=== PATIENT | female | born 1935 | race Caucasian/White ===

== ENCOUNTER 2016-11-17 10:26 | Emergency (ER) | payer MEDICARE, BC ==
[~2016-11-17] VITALS: Ht 152.4 cm; Wt 61.2 kg
--- NOTE | 2016-11-17 11:28 | NUR ---
Patient discharged to home in stable conditon. Written and verbal after care instructions given. Patient verbalizes understanding of instructions.
== END 2016-11-17 11:30 | disposition home or self-care (01) ==
LOC: ER 10:26
DX: S42.401A Unspecified fracture of lower end of right humerus, initial encounter for closed fracture (principal); I10 Essential (primary) hypertension; K21.9 Gastro-esophageal reflux disease without esophagitis; Z88.0 Allergy status to penicillin; Z88.2 Allergy status to sulfonamides; W19.XXXA Unspecified fall, initial encounter; Y93.89 Activity, other specified; Y92.89 Other specified places as the place of occurrence of the external cause; Y99.8 Other external cause status
CPT/HCPCS: 73030; 73080; A4663

== ENCOUNTER 2017-10-09 16:27 | Inpatient (IN) | payer MEDICARE, BC ==
[~2017-10-09] VITALS: Ht 157.5 cm; Wt 66.9 kg
[2017-10-09] MEDS ORDERED: NIFE30TA2 PO (16:49)
[2017-10-09] MEDS ORDERED: OMEP20CA10 PO (16:49)
[2017-10-09] MEDS ORDERED: ONDANSETRON 4 MG/2 ML VIAL IV ONE (17:15)
[2017-10-09] MEDS ORDERED: IV NORMAL SALINE 1000 ML BAG IV ONE (17:15)
[2017-10-09] MEDS ORDERED: ACETAMINOPHEN ES 500 MG TABLET PO ONE (17:15)
[2017-10-09] MEDS ORDERED: ONDANSETRON 4 MG/2 ML VIAL ONE (17:28)
[2017-10-09] MEDS ORDERED: ACETAMINOPHEN ES 500 MG TABLET ONE (17:28)
[2017-10-09 17:33] LABS: BASOPHILS % (AUTO) 0.8 % (0.0-2.0); HEMATOCRIT 40.2 % (31.2-41.9); HEMOGLOBIN 14.1 g/dL (10.9-14.3); LYMPHOCYTES # (AUTO) 0.4 K/uL (20.0-40.0); LYMPHOCYTES % (AUTO) 11.9 % (20.5-51.5); MEAN CORPUSCULAR HEMOGLOBIN 30.1 uug (24.7-32.8); MEAN CORPUSCULAR HGB CONC 35 g/dL (32.3-35.6); MONOCYTES # (AUTO) 0.2 K/uL (2.0-10.0); MONOCYTES % (AUTO) 5.1 % (0.0-11.0); NEUTROPHILS # (AUTO) 2.5 K/uL (1.8-8.9); NEUTROPHILS % (AUTO) 82.2 % (38.5-71.5); PLATELET COUNT (AUTO) 191 K/uL (179-408); RED BLOOD CELL COUNT(AUTO) 4.68 MIL/uL (3.63-4.92)
[2017-10-09 17:37] LABS: *BLOOD, URINE NEGATIVE (NEGATIVE); *CLARITY,URINE SLIGHTLY CLOUDY (CLEAR); *COLOR,URINE YELLOW (YELLOW); *KETONES,URINE 1+ (NEGATIVE); *PROTEIN,URINE 1+ (NEGATIVE); *UROBILINOGEN,URINE 0.2 E.U./dl (NORMAL); LEUKOCYTE ESTERASE ,URINE NEGATIVE (NEGATIVE); NITRITE, URINE NEGATIVE (NEGATIVE); PH,URINE 5.5 (5.0-8.0); UGLUCOSE TRACE (NEGATIVE)
[2017-10-09 17:42] LABS: CARBON DIOXIDE 31 mmol/L (21-32); CHLORIDE 100 mmol/L (98-107); CREATININE 0.6 mg/dL (0.6-1.3); GLUCOSE 112 mg/dL (74-106); POTASSIUM 3.4 mmol/L (3.5-5.1); UREA NITROGEN, BLOOD 13 mg/dL (7-18)
[2017-10-09 17:48] LABS: *BILIRUBIN,URIN 1+ (NEGATIVE)
[2017-10-09 17:52] LABS: BACTERIA,URINE NONE SEEN /HPF (NONE SEEN); RBC,URINE 0-3 /HPF (0-3); SQUAMOUS EPITHELIAL CELL,UR FEW /HPF (NONE SEEN)
[2017-10-09 17:56] LABS: ALANINE AMINOTRANSFERASE 23 U/L (14-59); ALKALINE PHOSPHATASE 111 U/L (50-136); ASPARTATE AMINOTRANSFERASE 23 U/L (15-37); BILIRUBIN,DIRECT 0.2 mg/dL (0.0-0.2); BILIRUBIN,TOTAL 0.7 mg/dL (0.2-1.0); TOTAL PROTEIN, SERUM 6.8 g/dL (6.4-8.2)
[2017-10-09] MEDS ORDERED: AZITHROMYCIN IV 500 MG in IV DEXTROSE 5% 250 ML IV ONE (18:45)
[2017-10-09] MEDS ORDERED: AZITHROMYCIN 500 MG VIAL IV ONE ×2 (18:46→19:30)
--- NOTE | 2017-10-09 19:45 | NUR ---
Patient's oxygen saturation 85% on room air, MD notified. Placed patient on oxygen 2L/min via nasal cannula.
--- NOTE | 2017-10-09 20:22 | NUR ---
Dr. Conner on panel call with Dr. Lewis.
--- NOTE | 2017-10-09 20:49 | NUR ---
Passed report to Nikia VILLATORO Tele.
--- NOTE | 2017-10-09 21:00 | NUR ---
NEW ADMIT FROM ER, ADMITTED FOR PNA/CHF. AAOX3 DENIES CHEST PAIN ON ADMISSION. C/O SOB ON EXERTION. O2 ON @2LPM SAT @ 95%. HOB AT 35 DEGREES TO EASE BREATHING. SAFETY MEASURES IN PLACE, CALL LIGHT LEFT WITHIN PATIENT'S REACH
[2017-10-09 21:13] VITALS: BP 130/61
[2017-10-09] MEDS ORDERED: MELATONIN 3 MG TABLET PO PRN (22:30)
[2017-10-09] MEDS ORDERED: ONDANSETRON 4 MG/2 ML VIAL IV PRN (22:30)
[2017-10-09] MEDS ORDERED: ALBUTEROL SULFATE 2.5 MG/3 ML NEBU NEB PRN (22:30)
[2017-10-09] MEDS ORDERED: MORPHINE SULFATE 2 MG/1 ML DISP.SYRIN IV PRN (22:30)
[2017-10-09] MEDS ORDERED: MAGNESIUM HYDROXIDE 30 ML LIQUID UDC PO PRN (22:30)
[2017-10-09] MEDS ORDERED: LEVOFLOXACIN 500 MG/D5W 100 ML ONE (23:04)
[2017-10-09] MEDS: LEVOFLOXACIN 500 MG/D5W 500 MG in PREMIXED 1 EACH IV SCH (23:10)
[2017-10-10 04:00] VITALS: BP 138/63
[2017-10-10] MEDS: ACETAMINOPHEN 325 MG TABLET PO PRN (06:09)
[2017-10-10] MEDS: PANTOPRAZOLE SODIUM 40 MG TABLET.DR PO SCH (06:09)
--- NOTE | 2017-10-10 06:29 | NUR ---
PATIENT IS AWAKE, SLEPT ON & OFF THROUGHOUT THE SHIFT. NO C/O CHEST PAIN, NO MORE C/O SOB ON EXERTION. NO FEVER ON THIS SHIFT, VSS WNL. TYLENOL PRN GIVEN X1 . NO FURTHER CHANGES IN STATUS. SAFETY MEASURES MAINTAINED AT ALL TIMES
[2017-10-10 06:56] LABS: BASOPHILS % (AUTO) 0.5 % (0.0-2.0); HEMATOCRIT 37.2 % (31.2-41.9); HEMOGLOBIN 13.4 g/dL (10.9-14.3); LYMPHOCYTES # (AUTO) 0.3 K/uL (20.0-40.0); MEAN CORPUSCULAR HEMOGLOBIN 30.7 uug (24.7-32.8); MEAN CORPUSCULAR HGB CONC 36 g/dL (32.3-35.6); MEAN CORPUSCULAR VOLUME 85.4 fL (75.5-95.3); MONOCYTES # (AUTO) 0.1 K/uL (2.0-10.0); NEUTROPHILS # (AUTO) 1.7 K/uL (1.8-8.9); NEUTROPHILS % (AUTO) 81.5 % (38.5-71.5); RED BLOOD CELL COUNT(AUTO) 4.36 MIL/uL (3.63-4.92)
[2017-10-10 07:08] LABS: PLATELET COUNT (AUTO) 160 K/uL (179-408)
[2017-10-10 07:09] LABS: WHITE BLOOD COUNT (AUTO) 2.1 K/uL (3.8-11.8)
[2017-10-10 07:16] LABS: ALANINE AMINOTRANSFERASE 26 U/L (14-59); ALKALINE PHOSPHATASE 96 U/L (50-136); ASPARTATE AMINOTRANSFERASE 30 U/L (15-37); BILIRUBIN,TOTAL 0.7 mg/dL (0.2-1.0); CARBON DIOXIDE 28 mmol/L (21-32); CHLORIDE 103 mmol/L (98-107); CHOLESTEROL 149 mg/dL (<200); CREATININE 0.6 mg/dL (0.6-1.3); GLUCOSE 100 mg/dL (74-106); HDL CHOLESTEROL 39 mg/dL (40-60); MAGNESIUM 1.9 mg/dL (1.8-2.4); PHOSPHOROUS 2.8 mg/dL (2.5-4.9); POTASSIUM 3.2 mmol/L (3.5-5.1); TOTAL PROTEIN, SERUM 6.3 g/dL (6.4-8.2); TRIGLYCERIDES 72 MG/DL (30-150); UREA NITROGEN, BLOOD 10 mg/dL (7-18)
[2017-10-10 07:22] LABS: THYROID STIMULATING HORMONE 0.456 mIU/mL (0.358-3.740)
[2017-10-10 07:50] LABS: BAND % (MANUAL) 13 % (0-10); BASOPHILS % (MANUAL) 1 % (0-2); LYMPHOCYTES % (MANUAL) 13 % (20-40); MONOCYTES % (MANUAL) 4 % (2-10); NEUTROPHILS % (MANUAL) 69 % (42-75)
--- NOTE | 2017-10-10 08:30 | NUR ---
Patient alert, in no distress, anxious to leave. Patient stated she does not want to be admitted, brought her own car and is in the parking lot. Patient does not want to leave AMA and is anxious to be discharged with oral antibiotics. MD notified.
[2017-10-10 08:33] VITALS: BP 117/67
[2017-10-10] MEDS ORDERED: MORPHINE SULFATE 4 MG/1 ML DISP.SYRIN IV PRN (08:36)
[2017-10-10] MEDS: ASPIRIN EC 81 MG TABLET.DR PO SCH (08:41)
[2017-10-10] MEDS: NIFEdipine XL 30 MG TABSR PO SCH (08:41)
[2017-10-10] MEDS ORDERED: FUROSEMIDE 20 MG/2 ML VIAL IV SCH (09:00)
--- NOTE | 2017-10-10 09:15 | NUR ---
Patient seen by special tester, discussed plans and treatment and provided patient teachings, pt verbalized understanding.
[2017-10-10] MEDS ORDERED: POTASSIUM CHLORIDE 20 MEQ POWDER PACKET PO ONE (10:00)
[2017-10-10 11:43] VITALS: BP 119/57
[2017-10-10] MEDS ORDERED: IPRATROPIUM BROMIDE 0.5 MG/2.5 ML NEBU NEB PRN (15:45)
[2017-10-10 16:22] VITALS: BP 128/51
--- NOTE | 2017-10-10 20:00 | NUR ---
PATIENT IS AWAKE IN BED AAOX3. DENIES PAIN OR SOB ON ASSESSMENT. O2 ON AT 2PLM WITH HOB AT 35 DEGREES. NO FEVER ON ASSESSMENT. SAFETY MEASURES IN PLACE, CALL LIGHT WITHIN PATIENT'S REACH
[2017-10-10 20:10] VITALS: BP 126/56
[2017-10-10] MEDS: DOCUSATE SODIUM 100 MG CAPSULE PO SCH (20:45)
[2017-10-10] MEDS: LEVOFLOXACIN 500 MG/D5W 500 MG in PREMIXED 1 EACH IV SCH (22:01)
[2017-10-11] VITALS: BP 125/68
[2017-10-11 04:00] VITALS: BP 135/63
[2017-10-11] MEDS: PANTOPRAZOLE SODIUM 40 MG TABLET.DR PO SCH (06:04)
[2017-10-11] MEDS: ACETAMINOPHEN 325 MG TABLET PO PRN (06:05)
--- NOTE | 2017-10-11 06:17 | NUR ---
PATIENT SLEPT THROUGHOUT THE SHIFT. PAIN MEDS GIVEN X1, NO ACUTE DISTRESS AT PRESENT. NO C/O SOB OR CHEST PAIN ON THIS SHIFT. PATIENT ON TELE WITH SINUS RHYTHM. NO FURTHER CHANGES AT PRESENT. SAFETY MEASURES MAINTAINED AT ALL TIMES
[2017-10-11 06:31] LABS: ALANINE AMINOTRANSFERASE 31 U/L (14-59); ALKALINE PHOSPHATASE 91 U/L (50-136); ASPARTATE AMINOTRANSFERASE 39 U/L (15-37); BILIRUBIN,TOTAL 0.7 mg/dL (0.2-1.0); CARBON DIOXIDE 30 mmol/L (21-32); CHLORIDE 105 mmol/L (98-107); CREATININE 0.6 mg/dL (0.6-1.3); GLUCOSE 95 mg/dL (74-106); MAGNESIUM 1.9 mg/dL (1.8-2.4); POTASSIUM 3.8 mmol/L (3.5-5.1); TOTAL PROTEIN, SERUM 5.9 g/dL (6.4-8.2); UREA NITROGEN, BLOOD 12 mg/dL (7-18)
[2017-10-11 07:06] LABS: BASOPHILS % (AUTO) 1.3 % (0.0-2.0); EOSINOPHILS % (AUTO) 0.8 % (0.0-7.0); LYMPHOCYTES # (AUTO) 0.6 K/uL (20.0-40.0); LYMPHOCYTES % (AUTO) 36.6 % (20.5-51.5); MEAN CORPUSCULAR HGB CONC 36 g/dL (32.3-35.6); MONOCYTES # (AUTO) 0.2 K/uL (2.0-10.0); NEUTROPHILS # (AUTO) 0.9 K/uL (1.8-8.9); NEUTROPHILS % (AUTO) 52.3 % (38.5-71.5); PLATELET COUNT (AUTO) 131 K/uL (179-408); RED BLOOD CELL COUNT(AUTO) 4.05 MIL/uL (3.63-4.92)
[2017-10-11 07:32] LABS: HEMATOCRIT 34.7 % (31.2-41.9); HEMOGLOBIN 12.3 g/dL (10.9-14.3); MEAN CORPUSCULAR VOLUME 85.5 fL (75.5-95.3)
[2017-10-11 07:33] LABS: MEAN CORPUSCULAR HEMOGLOBIN 30.4 uug (24.7-32.8); WHITE BLOOD COUNT (AUTO) 1.7 K/uL (3.8-11.8)
--- NOTE | 2017-10-11 08:00 | NUR ---
RESTING IN BED, AWAKE ALERT ORIENTED WITH NO SIGNS OF PAIN OR DISTRESS. CONTINUE TO HAVE SINUS RHYTHM ON MONITOR
[2017-10-11 08:40] LABS: LYMPHOCYTES % (MANUAL) 30 % (20-40); MONOCYTES % (MANUAL) 10 % (2-10); NEUTROPHILS % (MANUAL) 60 % (42-75)
[2017-10-11] MEDS: ASPIRIN EC 81 MG TABLET.DR PO SCH (08:45)
[2017-10-11] MEDS: NIFEdipine XL 30 MG TABSR PO SCH (08:46)
[2017-10-11 11:25] VITALS: BP 123/59
[2017-10-11] MEDS ORDERED: BISACODYL 10 MG SUPP.RECT RC PRN (11:30)
[2017-10-11] MEDS ORDERED: BISACODYL 10 MG SUPP.RECT RC ONE (11:30)
[2017-10-11] MEDS ORDERED: MAGNESIUM HYDROXIDE 30 ML LIQUID UDC PO ONE (11:30)
--- NOTE | 2017-10-11 12:00 | NUR ---
SEEN BY PT FOR STRENGTHENING EXERCISES SEE NOTES
[2017-10-11 15:53] VITALS: BP 138/58
--- NOTE | 2017-10-11 16:48 | NUR ---
NO ACUTE CHANGE CONTINUE OBSERVATION. ON DC PLANNING PER MICROWAVE ENGINEER AND
[2017-10-11 20:32] VITALS: BP 143/61
[2017-10-11] MEDS: DOCUSATE SODIUM 100 MG CAPSULE PO SCH (20:56)
[2017-10-11] MEDS ORDERED: DOCUSATE SODIUM 100 MG CAPSULE PO SCH (21:00)
[2017-10-11 21:33] LABS: THYROID STIMULATING HORMONE 1.779 mIU/mL (0.358-3.740)
[2017-10-11 21:52] LABS: *RHEUMATOID FACTOR SCREEN NEGATIVE (NEGATIVE)
--- NOTE | 2017-10-11 22:00 | NUR ---
Received patient laying in bed. No acute distress noted. A/O x 4. Patient is in O2 2L NC. IV on the left FA patent and intact. Patient is able to ambulate with FWW. Safety initiated. Call light within reach. Room is clutter free. Bed in low and locked position. Will continue to monitor.
[2017-10-11] MEDS: LEVOFLOXACIN 500 MG/D5W 500 MG in PREMIXED 1 EACH IV SCH (22:50)
[2017-10-12 05:35] VITALS: BP 130/61
--- NOTE | 2017-10-12 05:47 | NUR ---
No changes t/o shift. Patient slept well. Patient no c/o pain or SOB. A/O x 4. Ambulates with FWW. Skin intact. Endorsed this patient from [facility] at 2200 this last night. Vital signs stable. Meds given with no adverse effects. Room remains clutter free. Bed is in low and locked position. Safety and comfort measures maintained t/o shift. All needs met.
[2017-10-12] MEDS: PANTOPRAZOLE SODIUM 40 MG TABLET.DR PO SCH (06:01)
[2017-10-12 06:18] LABS: BASOPHILS % (AUTO) 0.6 % (0.0-2.0); EOSINOPHILS # (AUTO) 0.1 K/uL (0.0-0.7); EOSINOPHILS % (AUTO) 3.5 % (0.0-7.0); HEMATOCRIT 34.7 % (31.2-41.9); HEMOGLOBIN 12.4 g/dL (10.9-14.3); LYMPHOCYTES # (AUTO) 0.9 K/uL (20.0-40.0); LYMPHOCYTES % (AUTO) 29.2 % (20.5-51.5); MEAN CORPUSCULAR HEMOGLOBIN 30.5 uug (24.7-32.8); MEAN CORPUSCULAR HGB CONC 36 g/dL (32.3-35.6); MEAN CORPUSCULAR VOLUME 85.1 fL (75.5-95.3); MONOCYTES # (AUTO) 0.4 K/uL (2.0-10.0); MONOCYTES % (AUTO) 12.3 % (0.0-11.0); NEUTROPHILS # (AUTO) 1.6 K/uL (1.8-8.9); NEUTROPHILS % (AUTO) 54.4 % (38.5-71.5); PLATELET COUNT (AUTO) 145 K/uL (179-408); RED BLOOD CELL COUNT(AUTO) 4.07 MIL/uL (3.63-4.92); WHITE BLOOD COUNT (AUTO) 2.9 K/uL (3.8-11.8)
[2017-10-12 06:34] LABS: ALANINE AMINOTRANSFERASE 31 U/L (14-59); ALKALINE PHOSPHATASE 102 U/L (50-136); ASPARTATE AMINOTRANSFERASE 30 U/L (15-37); BILIRUBIN,TOTAL 0.7 mg/dL (0.2-1.0); CARBON DIOXIDE 30 mmol/L (21-32); CHLORIDE 103 mmol/L (98-107); CREATININE 0.5 mg/dL (0.6-1.3); GLUCOSE 103 mg/dL (74-106); MAGNESIUM 2.1 mg/dL (1.8-2.4); POTASSIUM 3.5 mmol/L (3.5-5.1); TOTAL PROTEIN, SERUM 6.2 g/dL (6.4-8.2); UREA NITROGEN, BLOOD 10 mg/dL (7-18)
--- NOTE | 2017-10-12 07:45 | NUR ---
Patient resting in bed. NC in place with o2 at 2lpm. Patient noted with order for CT w/o contrast this am
[2017-10-12] MEDS: NIFEdipine XL 30 MG TABSR PO SCH (09:17)
[2017-10-12] MEDS: ASPIRIN EC 81 MG TABLET.DR PO SCH (09:17)
--- NOTE | 2017-10-12 09:20 | NUR ---
Patient left for CT scan.
--- NOTE | 2017-10-12 10:05 | NUR ---
Patient in room. returned from ct scan.
--- NOTE | 2017-10-12 10:52 | NUR ---
Patient seen and evaluated by Physical therapy and discharged
[2017-10-12 11:48] VITALS: BP 144/63
--- NOTE | 2017-10-12 13:55 | NUR ---
Patient seen in room. Informed patient that lab and diagnostic results will be explained by .
[2017-10-12] MEDS ORDERED: LEVO500T2 PO (15:01)
[2017-10-12] MEDS ORDERED: FURO-152 PO (15:01)
[2017-10-12 15:38] VITALS: BP 140/52
--- NOTE | 2017-10-12 16:30 | NUR ---
Patient in room dressed. Able to dress self. Skin intact. IV line removed. Patient seen by Pharmacist to discuss medications patient is discharged with. Patient ambulatory with FWW. Discharge teaching done. No apparent distress. VS within normal limits. Patient verbalized that she will be scheduling her own follow up appointment. Patient walked out of unit with her own walker
[2017-10-13 08:08] LABS: *IMMUNOGLOBULIN G, SERUM 908 mg/dL (700-1600); IMMUNOGLOBULIN A, SERUM 110 mg/dL (64-422); IMMUNOGLOBULIN M, SERUM 75 mg/dL (26-217)
[2017-10-13 12:07] LABS: *ANTI-SCLERODERMA-70 AB <0.2 AI (0.0-0.9); *SJOGREN'S ANTI-SS-A <0.2 AI (0.0-0.9); *SJOGREN'S ANTI-SS-B <0.2 AI (0.0-0.9); *SMITH ANTIBODIES <0.2 AI (0.0-0.9); A/G RATIO 1.1 (0.7-1.7); ALBUMIN 2.9 g/dL (2.9-4.4); ALPHA-1-GLOBULIN 0.3 g/dL (0.0-0.4); ALPHA-2-GLOBULIN 0.4 g/dL (0.4-1.0); ANTI-DNA(DS) AB, QN 2 IU/mL (0-9); BETA GLOBULIN 0.9 g/dL (0.7-1.3); GLOBULIN, TOTAL 2.6 g/dL (2.2-3.9); HEPATITIS B SURFACE AB Non Reactive (.); HEPATITIS B SURFACE AG Negative (Negative); M-SPIKE Not Observed g/dL (Not Observed)
== END 2017-10-12 16:30 | disposition home or self-care (01) | DRG 194 ==
LOC: ER 16:30 → TELE 20:51 → MED 10-11 12:25
PROVIDERS: ADMIT Internal Medicine; ATTEND Internal Medicine
DX: J15.9 Unspecified bacterial pneumonia (principal); E44.0 Moderate protein-calorie malnutrition; D61.818 Other pancytopenia; J20.9 Acute bronchitis, unspecified; E87.6 Hypokalemia; K21.9 Gastro-esophageal reflux disease without esophagitis; J45.909 Unspecified asthma, uncomplicated; M81.0 Age-related osteoporosis without current pathological fracture; Z86.73 Personal history of transient ischemic attack (TIA), and cerebral infarction without residual deficits; Z87.442 Personal history of urinary calculi; Z90.49 Acquired absence of other specified parts of digestive tract; Z96.652 Presence of left artificial knee joint; Z88.0 Allergy status to penicillin; Z88.2 Allergy status to sulfonamides; R73.9 Hyperglycemia, unspecified; E78.5 Hyperlipidemia, unspecified; D72.819 Decreased white blood cell count, unspecified; D69.6 Thrombocytopenia, unspecified; I35.1 Nonrheumatic aortic (valve) insufficiency; I10 Essential (primary) hypertension; R74.0 Nonspecific elevation of levels of transaminase and lactic acid dehydrogenase [LDH]; Z68.27 Body mass index [BMI] 27.0-27.9, adult; R07.81 Pleurodynia
CPT/HCPCS: 36415; 70030-TC; 71045; 71101; 71250; 76700; 82746; 82784; 83605; 83735; 84100; 84155; 84165; 84443; 85025; 85730; 86038; 86140; 86334; 86430; 86706; 86803; 87040; 87086; 87340; 93005; 93307; 97110; 97116; 97530; A4663; A9150; J0456; J1940; J1956; J2405; J3490; J7030; J7040; J7060